=== PATIENT | male | born 1985 | race Caucasian/White ===

== ENCOUNTER 2019-01-29 13:13 | Emergency (ER) | payer OTHER ==
[2019-01-29 13:19] VITALS: RESP 18
--- NOTE | 2019-01-29 14:07 | ED ---
Fall HPI - General Chief Complaint: Fall Stated Complaint: ankle injury Time Seen by Provider: 01/29/19 13:23 Source: patient, RN notes reviewed, old records reviewed Mode of arrival: ambulatory - History of Present Illness Initial Comments: Patient is a 33-year-old male presents today for evaluation for concern for right ankle injury. Patient reports that he twisted his ankle walking at once. Patient states that he heard a snap during that time. Patient states that he has had no previous ankle injuries. He reports he is following up with regards to left knee injury and is going to physical therapy at this time. He also states that he did twist his right knee. Patient denies any peripheral paresthesias. - Related Data Previous Rx's Medication Instructions Recorded Ibuprofen 600 mg PO TID #20 tablet 01/29/19 Allergies Allergy/AdvReac Type Severity Reaction Status Date / Time Penicillins Allergy Unknown Verified 01/29/19 13:19 Review of Systems ROS Statement: Those systems with pertinent positive or pertinent negative responses have been documented in the HPI. ROS Other: All systems not noted in ROS Statement are negative. Past Medical History Past Medical History: No Reported History History of Any Multi-Drug Resistant Organisms: None Reported Past Surgical History: No Surgical Hx Reported Past Psychological History: No Psychological Hx Reported Smoking Status: Never smoker Past Alcohol Use History: Occasional Past Drug Use History: None Reported General Exam - General Exam Comments Initial Comments: 33-year-old male. No distress. Limitations: no limitations General appearance: alert, in no apparent distress Head exam: Present: atraumatic, normocephalic, normal inspection Eye exam: Present: normal appearance, PERRL, EOMI. Absent: scleral icterus, conjunctival injection, periorbital swelling ENT exam: Present: normal exam, mucous membranes moist Neck exam: Present: normal inspection. Absent: tenderness, meningismus, lymphadenopathy Respiratory exam: Present: normal lung sounds bilaterally. Absent: respiratory distress, wheezes, rales, rhonchi, stridor Cardiovascular Exam: Present: regular rate, normal rhythm, normal heart sounds. Absent: systolic murmur, diastolic murmur, rubs, gallop, clicks GI/Abdominal exam: Present: soft, normal bowel sounds. Absent: distended, tenderness, guarding, rebound, rigid Extremities exam: Present: normal inspection, full ROM, normal capillary refill. Absent: tenderness, pedal edema, joint swelling, calf tenderness Right Knee exam: Present: normal inspection, full ROM, abrasion (Patient has an abrasion over the right knee. Full range of motion of the knee noted.) Lower Leg exam: Present: normal inspection, full ROM Ankle exam: Present: tenderness, swelling (Patient has tenderness and swelling over the lateral and medial malleolus. Evidence of ecchymosis.), ecchymosis. Absent: normal inspection Foot/Toe exam: Present: normal inspection, full ROM Neurovascular tendon exam: Present: no vascular compromise Back exam: Present: normal inspection Neurological exam: Present: alert, oriented X3, CN II-XII intact Psychiatric exam: Present: normal affect, normal mood Skin exam: Present: warm, dry, intact, normal color. Absent: rash Course Vital Signs 01/29/19 01/29/19 13:15 15:12 Temperature 99.0 F 97.9 F Pulse Rate 79 72 Respiratory 18 18 Rate Blood Pressure 159/89 147/94 O2 Sat by Pulse 98 97 Oximetry Medical Decision Making - Medical Decision Making 33-year-old male presents with right ankle injury and knee injury after he twisted it walking outside. Patient does have some swelling and tenderness over the medial and lateral malleolus. Evidence of ecchymosis and swelling. He also is an abrasion over the right knee. Has full range motion of the knee. X-rays of the knee ankle and foot were completed. There is no evidence of fracture. Discussed I grade ankle sprain. Patient will be placed in Hardeep wrap and ankle stirrup splint and crutches. Discussed anti-inflammatory medicine and given a starter pack for pain medication. All questions were answered return parameters were discussed. - Radiology Data Radiology results: report reviewed Negative right knee exam. Mild spur formation. foot xray Calcaneal spurring. No fracture. Right ankle shows calcaneal spurring no fracture. Soft tissue swelling noted. Disposition Clinical Impression: Right ankle sprain Disposition: HOME SELF-CARE Condition: Good Instructions (If sedation given, give patient instructions): Ankle Sprain (ED) Additional Instructions: Please use medication as discussed. Please follow up with family doctor if symptoms have not improved over the next two days. Please return to the emergency room if your symptoms increase or worsen or for any other concerns. Prescriptions: Ibuprofen 600 mg PO TID #20 tablet Is patient prescribed a controlled substance at d/c from ED?: No Referrals: Paul Burk MD [Primary Care Provider] - 1-2 days Stepan Coelho MD [STAFF PHYSICIAN] - 1-2 days Bi Ardon DO [Medical Doctor] - 1-2 days Time of Disposition: 14:46
--- NOTE | 2019-01-29 14:26 | XR ---
EXAMINATION TYPE: XR knee complete RT DATE OF EXAM: 01/29/2019 COMPARISON: NONE HISTORY: Pain TECHNIQUE: 3 views FINDINGS: I see no fracture nor dislocation. Joint spaces are fairly normal. There is minor spurring of the tibial condyles. There is no sign of joint effusion. IMPRESSION: Negative right knee exam. Minor spur formation.
--- NOTE | 2019-01-29 14:26 | XR ---
EXAMINATION TYPE: XR ankle complete RT DATE OF EXAM: 01/29/2019 COMPARISON: NONE HISTORY: Pain TECHNIQUE: 3 views FINDINGS: There is soft tissue swelling over the lateral malleolus. There is plantar calcaneal spurri ng. Ankle mortise is anatomic. I see no fracture. IMPRESSION: Calcaneal spurring. No fracture seen. Soft tissue swelling.
--- NOTE | 2019-01-29 14:27 | XR ---
EXAMINATION TYPE: XR foot complete RT DATE OF EXAM: 01/29/2019 COMPARISON: NONE HISTORY: Pain TECHNIQUE: 3 views FINDINGS: There is plantar calcaneal spurring. Metatarsals are intact. I see no fracture nor dislocat ion. IMPRESSION: Calcaneal spurring. No fracture seen.
[2019-01-29] MEDS ORDERED: ACET/COD 300 MG/30 MG STARTER PACK 6 TAB BTL PO STA (14:58)
[2019-01-29 15:13] VITALS: BP 147/94; PULSE 72; TEMP 97.9
== END 2019-01-29 15:05 | disposition home or self-care (01) ==
LOC: EC 13:13
DX: S93.401A Sprain of unspecified ligament of right ankle, initial encounter (principal); S80.211A Abrasion, right knee, initial encounter; M77.31 Calcaneal spur, right foot; Z88.0 Allergy status to penicillin; X50.1XXA Overexertion from prolonged static or awkward postures, initial encounter; Y93.01 Activity, walking, marching and hiking; Y92.828 Other wilderness area as the place of occurrence of the external cause
CPT/HCPCS: 29515; 99284

== ENCOUNTER → 2019-02-12 | Outpatient (CLI) | payer OTHER ==
--- NOTE | 2019-02-12 12:08 | XR ---
EXAMINATION TYPE: XR ankle limited RT DATE OF EXAM: 02/12/2019 CLINICAL HISTORY: Injury with pain and swelling. TECHNIQUE: Frontal and lateral images of the right ankle are obtained. COMPARISON: Right ankle xray 2 weeks ago. FINDINGS: There is no acute fracture/dislocation evident in the right ankle. The ankle mortise appe ars within normal limits. Incidental tiny inferior calcaneal spur redemonstrated. The overlying soft tissue appears unremarkable. IMPRESSION: There is no acute fracture or dislocation in the right ankle. No significant change from prior study.
== END | disposition home or self-care (01) ==
LOC: RADXRMAIN 11:40
PROVIDERS: ATTEND Family Medicine
DX: M25.571 Pain in right ankle and joints of right foot (principal)